=== PATIENT | male | born 1980 | race Caucasian/White ===

== ENCOUNTER 2016-11-11 00:52 | Emergency (ER) | payer SELFPAY ==
--- NOTE | 2016-11-11 01:18 | Emergency Department Record ---
History of Present Illness - General Chief complaint: Abscess Stated complaint: RT FOOT INFECTION Time Seen by Provider: 11/11/16 01:07 Source: Patient Mode of Arrival: Ambulatory Limitations: No limitations - History of Present Illness Initial comments: pt scraped his foot 2 days ago now has surrounding erythema complaint: Rash Onset/Timin -: Days(s) Patient Tetanus UTD (within 5 yrs): No Location: R foot Severity scale (1-10): 4 Quality: Aching Consistency: Constant, Intermittent Improves with: None Worsens with: None Associated symptoms: Denies other symptoms - Related Data Previous Rx's Medication Instructions Recorded Sulfamethoxazole/Trimethoprim 1 each PO BID #20 tablet 11/11/16 [Bactrim Ds Tablet] Allergies Allergy/AdvReac Type Severity Reaction Status Date / Time No Known Drug Allergies Allergy Verified 11/11/16 00:57 Travel Screening - Travel/Exposure Within Last 30 Days Have you traveled within the last 30 days?: No Review of Systems Reviewed: No additional complaints except as noted below Constitutional: Reports: As per HPI. Denies: Chills, Fever, Malaise, Night sweats, Weakness, Weight change Eyes: Reports: As per HPI. Denies: Eye discharge, Eye pain, Photophobia, Vision change ENT: Reports: As per HPI. Denies: Congestion, Dental pain, Ear pain, Epistaxis , Hearing loss, Throat pain Respiratory: Reports: As per HPI. Denies: Cough, Dyspnea, Hemoptysis, Stridor, Wheezes Cardiovascular: Reports: As per HPI. Denies: Arrhythmia, Chest pain, Dyspnea on exertion, Edema, Murmurs, Orthopnea, Palpitations, Paroxysmal nocturnal dyspnea, Rheumatic Fever, Syncope Endocrine: Reports: As per HPI. Denies: Fatigue, Heat or cold intolerance, Polydipsia, Polyuria Gastrointestinal: Reports: As per HPI. Denies: Abdominal pain, Constipation, Diarrhea, Hematemesis, Hematochezia, Melena, Nausea, Vomiting Genitourinary: Reports: As per HPI. Denies: Dysuria, Frequency, Hematuria, Incontinence, Retention, Testicular pain, Testicular mass, Urgency Musculoskeletal: Reports: As per HPI. Denies: Arthralgia, Back pain, Gout, Joint swelling, Myalgia, Neck pain Skin: Reports: As per HPI. Denies: Bruising, Change in color, Change in hair/ nails, Lesions, Pruritus, Rash Neurological: Reports: As per HPI. Denies: Abnormal gait, Confusion, Headache, Numbness, Paresthesias, Seizure, Tingling, Tremors, Vertigo, Weakness Psychiatric: Reports: As per HPI. Denies: Anxiety, Auditory hallucinations, Depression, Homicidal thoughts, Suicidal thoughts, Visual hallucinations Hematological/Lymphatic: Reports: As per HPI. Denies: Anemia, Blood Clots, Easy bleeding, Easy bruising, Swollen glands Past Medical History - SOCIAL HISTORY Smoking Status: Current every day smoker Alcohol Use: None Drug Use: None - RESPIRATORY Hx Respiratory Disorders: No - CARDIOVASCULAR Hx Cardio Disorders: No - NEURO Hx Neuro Disorders: No - GI Hx GI Disorders: No - Hx Genitourinary Disorders: No - ENDOCRINE Hx Endocrine Disorders: No - MUSCULOSKELETAL Hx Musculoskeletal Disorders: No - PSYCH Hx Psych Problems: No - HEMATOLOGY/ONCOLOGY Hx Hematology/Oncology Disorders: No Family Medical History Any Significant Family History?: Yes Hx Diabetes: Mother Hx Heart Disease: Mother Physical Exam - General General Appearance: Alert, Oriented x3, Cooperative, Mild distress - Head Head exam: Normal inspection - Eye Eye exam: Normal appearance, PERRL, EOMI Pupils: Normal accommodation - ENT ENT exam: Normal exam, Mucous membranes moist, Normal external ear exam, Normal orophraynx Ear exam: Normal external inspection. negative: External canal tenderness Nasal Exam: Normal inspection. negative: Discharge, Sinus tenderness Mouth exam: Normal external inspection, Tongue normal Teeth exam: Normal inspection. negative: Dental caries Throat exam: Normal inspection. negative: Tonsillar erythema, Tonsillar exudate - Neck Neck exam: Normal inspection, Full ROM. negative: Tenderness - Respiratory Respiratory exam: Normal lung sounds bilaterally. negative: Respiratory distress - Cardiovascular Cardiovascular Exam: Regular rate, Normal rhythm, Normal heart sounds - GI/Abdominal GI/Abdominal exam: Soft, Normal bowel sounds. negative: Tenderness - Rectal Rectal exam: Deferred - exam: Deferred - Extremities Extremities exam: Normal inspection, Full ROM, Normal capillary refill. negative: Tenderness Image of Feet: 1 - erythema w abrasion in center - Back Back exam: Reports: Normal inspection, Full ROM. Denies: Muscle spasm, Rash noted, Tenderness - Neurological Neurological exam: Alert, CN II-XII intact, Normal gait, Oriented X3 - Psychiatric Psychiatric exam: Normal affect, Normal mood - Skin Skin exam: Dry, Erythema, Intact, Normal color, Rash, Warm Type of lesion: Rash Description of rash: Erythematous Course Vital Signs 11/11/16 00:57 Temperature 99.2 F Pulse Rate 91 H Respiratory 18 Rate Blood Pressure 130/80 Pulse Ox 96 Disposition Disposition: Discharge Clinical Impression: Cellulitis of right foot Disposition: Home, Self-Care Condition: (1) Good Instructions: Cellulitis (ED) Additional Instructions: recheck in 12 hours. return sooner if worse.. elevate foot Prescriptions: Sulfamethoxazole/Trimethoprim [Bactrim Ds Tablet] 1 each PO BID #20 tablet Forms: Patient Portal Access, Return to Work/School Quality - Quality Measures Quality Measures: N/A - Blood Pressure Screening Blood Pressure Classification: Pre-Hypertensive BP Reading Systolic Measurement: 130 Diastolic Measurement: 80 Screening for High Blood Pressure: < Pre-Hypertensive BP, F/U Documented > [ G8950] Pre-Hypertensive Follow-up Interventions: Follow-up with rescreen every year.
[2016-11-11] MEDS: TMP/SMZ 160MG/800MG TAB PO ONE (01:33)
== END 2016-11-11 01:50 | disposition home or self-care (01) ==
LOC: ER 00:52
DX: L03.115 Cellulitis of right lower limb (principal)
CPT/HCPCS: J3490; 99282

== ENCOUNTER 2018-02-16 02:00 | Emergency (ER) | payer SELFPAY ==
[2018-02-16] MEDS ORDERED: 0.9 % SODIUM CHLORIDE 1,000 ML BAG IV ONE (02:11)
[2018-02-16] MEDS ORDERED: ONDANSETRON HCL IV 4 MG/2 ML VIAL IV ONE (02:11)
[2018-02-16 02:13] LABS: URINE APPEARANCE CLEAR; URINE BILIRUBIN NEGATIVE (NEGATIVE); URINE BLOOD NEGATIVE (NEGATIVE); URINE COLOR YELLOW; URINE GLUCOSE (UA) NEGATIVE (NEGATIVE); URINE KETONE TRACE (NEGATIVE); URINE LEUKOCYTE ESTERASE NEGATIVE (NEGATIVE); URINE NITRITE NEGATIVE (NEGATIVE); URINE PROTEIN NEGATIVE (NEGATIVE); URINE UROBILINOGEN 0.2 E.U./dL (0.20 - 1.00)
--- NOTE | 2018-02-16 02:17 | Emergency Department Record ---
History of Present Illness - General Chief Complaint: Abdominal Pain Stated Complaint: FLANK PAIN Time Seen by Provider: 02/16/18 02:01 Source: Patient, Family Mode of Arrival: Ambulatory Limitations: No limitations - History of Present Illness Initial Comments: 37 yo male presents with about 5 days of abdominal discomfort, nausea, flank pain, and decreased bowel movements. No fevers or chills. No diarrhea. No blood in the stools. He reports occasional cramps and gassy feeling. No history of abdominal surgery. No current medications. He does smoke. Rare alcohol use. The abdomen vaguely hurts all over without any one place that hurts. His bilateral flanks hurt on and off. His stools have been small and firm compared to normal. No PCP. He generally is healthy. MD Complaint: Abdominal pain, Flank pain -: Days(s) Location: Epigastric Radiation: Bilateral flank Migration to: Bilateral flank Severity: Moderate Quality: Cramping Consistency: Intermittent Improves With: Nothing Worsens With: Eating Associated Symptoms: Anorexia, Constipation - Related Data Previous Rx's Medication Instructions Recorded Ciprofloxacin HCl [Cipro] 500 mg PO Q12HR #14 tablet 02/16/18 Metronidazole [Flagyl] 500 mg PO BID #14 tablet 02/16/18 Allergies Allergy/AdvReac Type Severity Reaction Status Date / Time No Known Drug Allergies Allergy Verified 11/11/16 00:57 Review of Systems Constitutional: Denies: Chills, Fever, Malaise, Weakness Eyes: Denies: Eye discharge, Eye pain, Photophobia, Vision change ENT: Denies: Congestion, Throat pain Respiratory: Denies: Cough, Dyspnea Cardiovascular: Denies: Chest pain, Palpitations, Syncope Endocrine: Denies: Fatigue, Polydipsia, Polyuria Gastrointestinal: Reports: Abdominal pain, Constipation, Nausea. Denies: Diarrhea, Hematemesis, Hematochezia, Melena, Vomiting Genitourinary: Denies: Dysuria, Frequency, Hematuria Musculoskeletal: Denies: Arthralgia, Back pain, Myalgia Skin: Denies: Bruising, Change in color, Rash Neurological: Denies: Headache Psychiatric: Denies: Anxiety Hematological/Lymphatic: Denies: Blood Clots, Easy bleeding, Easy bruising Past Medical History - SOCIAL HISTORY Smoking Status: Current every day smoker Drug Use: None - RESPIRATORY Hx Respiratory Disorders: No - CARDIOVASCULAR Hx Cardio Disorders: No - NEURO Hx Neuro Disorders: No - GI Hx GI Disorders: No - Hx Genitourinary Disorders: No - ENDOCRINE Hx Endocrine Disorders: No - MUSCULOSKELETAL Hx Musculoskeletal Disorders: No - PSYCH Hx Psych Problems: No - HEMATOLOGY/ONCOLOGY Hx Hematology/Oncology Disorders: No Family Medical History Hx Diabetes: Mother Hx Heart Disease: Mother Physical Exam - General General Appearance: Alert, Oriented x3, Cooperative, No acute distress Limitations: No limitations - Head Head exam: Atraumatic, Normocephalic, Normal inspection - Eye Eye exam: Normal appearance. negative: Conjunctival injection, Scleral icterus - ENT ENT exam: Normal exam, Mucous membranes moist, Normal orophraynx Ear exam: Normal external inspection Nasal Exam: Normal inspection Mouth exam: Normal external inspection Teeth exam: Normal inspection Throat exam: Normal inspection - Neck Neck exam: Normal inspection, Full ROM. negative: Tenderness - Respiratory Respiratory exam: Normal lung sounds bilaterally. negative: Respiratory distress, Rhonchi, Stridor, Wheezes - Cardiovascular Cardiovascular Exam: Regular rate, Normal rhythm, Normal heart sounds - GI/Abdominal GI/Abdominal exam: Soft, Normal bowel sounds. negative: Diminished bowel sounds , Distended, Guarding, Rebound, Rigid, Tenderness - exam: Deferred - Extremities Extremities exam: Normal inspection, Full ROM, Normal capillary refill. negative: Tenderness - Back Back exam: Denies: CVA tenderness (R), CVA tenderness (L) - Neurological Neurological exam: Alert, Oriented X3 - Psychiatric Psychiatric exam: Normal affect, Normal mood - Skin Skin exam: Dry, Intact, Normal color, Warm Course Vital Signs 02/16/18 02:05 Temperature 98.6 F Pulse Rate [ 94 H Pulse Ox Probe] Respiratory 24 Rate Blood Pressure 120/88 [Left Arm] Pulse Ox 98 - Reevaluation(s) Reevaluation #1: The vitals were reviewed. No significant acute abnormalities. 02/16/18 02:17 UA is negative for infection or blood. 02/16/18 02:31 No acute changes on the CBC 02/16/18 03:29 No acute changes on the BMP 02/16/18 03:57 No acute changes on the lipase or LFT's Pain improving. Pt tolerated the PO contrast and is ready for CT 02/16/18 05:[address] demonstrated diverticulosis with faint haziness in the sigmoid. Given his symptoms he will be treated for acute diverticulitis. We discussed home care, reasons to return, and referral for follow up Medical Decision Making - Lab Data Result diagrams: 02/16/18 02:17 02/16/18 02:17 Disposition Disposition: Discharge Clinical Impression: Abdominal pain, Diverticulitis Disposition: Home, Self-Care Condition: (1) Good Instructions: Diverticulitis (ED), Constipation (ED) Additional Instructions: Call your doctor for the next available follow up appointment Return to the ER for a recheck if worse, any new concerns or questions Take the prescriptions provided as directed Review this ER visit and the tests performed with your family doctor Prescriptions: Ciprofloxacin HCl [Cipro] 500 mg PO Q12HR #14 tablet Metronidazole [Flagyl] 500 mg PO BID #14 tablet Referrals: BELLA SALINAS [MEDICAL DOCTOR] - Forms: Patient Portal Access Time of Disposition: 05:05 Quality - Quality Measures Quality Measures: N/A - Blood Pressure Screening Does Patient Have Any of the Following: No Blood Pressure Classification: Hypertensive Reading Systolic Measurement: 125 Diastolic Measurement: 90 Screening for High Blood Pressure: < Pre-Hypertensive BP, F/U Documented > [ G8950] Pre-Hypertensive Follow-up Interventions: Referral to alternative/primary care provider.
[2018-02-16 02:23] LABS: HEMATOCRIT 45.8 % (42.0-52.0); HEMOGLOBIN 16.1 gm/dl (14.0-18.0); MEAN CELL VOLUME 87.2 fl (81-97); MEAN CORPUSCULAR HEMOGLOBIN 30.7 pg (27-33); MEAN CORPUSCULAR HGB CONC 35.2 g/dl (32-36); MEAN PLATELET VOLUME 8.7 fl (7.4-10.4); PLATELET COUNT 267 K/uL (130-400); RED BLOOD COUNT 5.25 M/uL (4.40-5.70); RED CELL DISTRIBUTION WIDTH 12.7 % (11.5-14.5); WHITE BLOOD COUNT W/O DIFF 7.4 K/uL (4.2-12.2)
[2018-02-16 03:02] LABS: PLATELET ESTIMATE NORMAL (NORMAL)
[2018-02-16 03:25] LABS: BLOOD UREA NITROGEN 8 mg/dL (6-20)
[2018-02-16 03:26] LABS: CREATININE 0.7 mg/dL (0.7-1.2); EST GLOMERULAR FILTRATION RATE > 60 mL/min; TOTAL PROTEIN 6.8 g/dL (6.6-8.7)
[2018-02-16 03:28] LABS: GLUCOSE,RANDOM 90 mg/dL (74-109)
[2018-02-16 03:30] LABS: ALT/SGPT 15 U/L (<41)
[2018-02-16 03:31] LABS: ALBUMIN 4.4 g/dL (4.0-5.0); ALKALINE PHOSPHATASE 58 U/L (40-129); AST/SGOT 15 U/L (10.0-50.0); BILIRUBIN,DIRECT < 0.2 mg/dL (0-0.3); LIPASE 18 U/L (13-60)
[2018-02-16] MEDS ORDERED: METRONIDAZOLE 250 MG TABLET PO ONE (05:05)
[2018-02-16] MEDS ORDERED: CIPROFLOXACIN HCL 500 MG TABLET PO ONE (05:05)
--- NOTE | 2018-02-17 14:41 | CT SCAN REPORT ---
DATE: 02/16/2018 at 4:02 a.m. EXAM: CT OF THE ABDOMEN AND PELVIS WITH CONTRAST. HISTORY: DIFFUSE ABDOMINAL PAIN FOR ONE WEEK. CONSTIPATION. RIGHT FLANK PAIN. TECHNIQUE: Axial CT scan of the abdomen and pelvis performed with oral contrast but without intravenous contrast. Preliminary report provided by [facility]. COMPARISON: CT of the abdomen and pelvis dated 03/13/2011. FINDINGS: No calcified gallstones are seen within the gallbladder. No definite hepatic, splenic, adrenal, pancreatic, or renal mass identified. There is some mild diverticulosis in the sigmoid colon. Some mild haziness in the perisigmoid adipose tissue posteriorly, and very mild changes of acute diverticulitis cannot absolutely be excluded. Oral contrast given is passed throughout the small bowel well into the colon with no small-bowel obstruction evident. The appendix is opacified with oral contrast and appears of normal caliber with no appendicitis evident. Mild dependent atelectasis in both lung bases posteriorly. No free intraperitoneal air or free intraperitoneal fluid evident. Tiny periumbilical anterior abdominal wall hernia containing adipose tissue but no bowel. Prominent facet joint arthropathy in the lower lumbar spine and spurring along the anterior aspect of the lower thoracic spine. Somewhat thick-walled appearance of the low rectum is presumably just due to incomplete distension, although correlation with physical examination is suggested. IMPRESSION: 1. MINOR DIVERTICULOSIS IN THE SIGMOID COLON AND QUESTIONABLE MINOR CHANGES OF DIVERTICULITIS WELL POSTERIORLY. 2. SOMEWHAT THICK-WALLED APPEARANCE OF THE LOW RECTUM PRESUMABLY JUST DUE TO INCOMPLETE DISTENSION, ALTHOUGH CORRELATION WITH PHYSICAL EXAMINATION IS SUGGESTED. 3. APPENDIX IS NEGATIVE. NO FREE AIR OR FREE FLUID EVIDENT. 4. SOME DEGENERATIVE CHANGES IN THE SPINE. JOB NUMBER: [id number] [facility]
== END 2018-02-16 05:37 | disposition home or self-care (01) ==
LOC: ER 02:00
DX: K57.92 Diverticulitis of intestine, part unspecified, without perforation or abscess without bleeding (principal); R10.13 Epigastric pain; R11.0 Nausea; F17.210 Nicotine dependence, cigarettes, uncomplicated
CPT/HCPCS: 99284 ×2; 96374; 83690; 80076; 80048; 81003; 85027; 74177; Q9967; J2405; J7030

== ENCOUNTER 2018-04-10 00:49 | Emergency (ER) | payer SELFPAY ==
[2018-04-10] MEDS ORDERED: IBUPROFEN 600 MG TABLET PO ONE (01:04)
--- NOTE | 2018-04-10 01:07 | Emergency Department Record ---
History of Present Illness - General Chief Complaint: Abdominal Pain Stated Complaint: ABD PAIN Time Seen by Provider: 04/10/18 00:58 Source: Patient Mode of Arrival: Ambulatory Limitations: No limitations - History of Present Illness Initial Comments: The patient is here due to a 4 day hx of sharp crampy bilateral flank pain R>L with nausea and intermittent loose stools and anorexia. He has had no vomiting, fever, dysuria or bloating. The patient had a similar issue about 8 weeks ago and was told he may have had diverticulitis. The patient has never had any abdominal surgeries. MD Complaint: Abdominal pain Onset/Timin -: Days(s) Location: Diffuse Migration to: Bilateral flank Severity: Mild Severity scale (1-10): 3 Quality: Sharp, Stabbing Consistency: Constant Improves With: Nothing Worsens With: Nothing Associated Symptoms: Constipation, Diarrhea - Related Data Previous Rx's Medication Instructions Recorded Naproxen [Naprosyn] 500 mg PO BID #14 tablet. 04/10/18 Sucralfate [Carafate] 1 gm PO QID #28 tablet 04/10/18 Allergies Allergy/AdvReac Type Severity Reaction Status Date / Time No Known Drug Allergies Allergy Verified 11/11/16 00:57 Travel Screening - Travel/Exposure Within Last 30 Days Have you traveled within the last 30 days?: No - Travel Symptoms Symptom Screening: None Review of Systems Constitutional: Denies: Chills, Fever Eyes: Denies: Eye discharge ENT: Denies: Congestion Respiratory: Denies: Cough, Dyspnea Past Medical History - SOCIAL HISTORY Smoking Status: Current every day smoker Alcohol Use: None Drug Use: None - RESPIRATORY Hx Respiratory Disorders: No - CARDIOVASCULAR Hx Cardio Disorders: No - NEURO Hx Neuro Disorders: No - GI Hx GI Disorders: Yes Hx Diverticulitis: Yes - Hx Genitourinary Disorders: No - ENDOCRINE Hx Endocrine Disorders: No - MUSCULOSKELETAL Hx Musculoskeletal Disorders: No - PSYCH Hx Psych Problems: No - HEMATOLOGY/ONCOLOGY Hx Hematology/Oncology Disorders: No Family Medical History Any Significant Family History?: Yes Hx Diabetes: Mother Hx Heart Disease: Mother Physical Exam - General General Appearance: Alert, Oriented x3, Cooperative, No acute distress - Head Head exam: Atraumatic, Normocephalic, Normal inspection - Eye Eye exam: Normal appearance, PERRL, EOMI - ENT Throat exam: Normal inspection. negative: Tonsillar erythema, Tonsillar exudate - Neck Neck exam: Normal inspection, Full ROM. negative: Tenderness - Respiratory Respiratory exam: Normal lung sounds bilaterally. negative: Respiratory distress - Cardiovascular Cardiovascular Exam: Regular rate, Normal rhythm, Normal heart sounds - GI/Abdominal GI/Abdominal exam: Soft, Normal bowel sounds. negative: Rebound, Rigid, Tenderness (The abdomen is nontender in all 4 quads.) - Extremities Extremities exam: Normal inspection, Full ROM, Normal capillary refill. negative: Tenderness - Neurological Neurological exam: Alert, Normal gait. negative: Abnormal gait, Motor sensory deficit Course Vital Signs 04/10/18 00:52 Temperature 98.1 F Pulse Rate 121 H Respiratory 20 Rate Blood Pressure 138/80 Pulse Ox 97 - Reevaluation(s) Reevaluation #1: The patient is resting comfortably with no complaints. I did explain to him that his workup is all WNL's and I see no evidence of Diverticulitis. Due to that fact we will place the patient on an NSAID for pain and Carafate and he is to F/U with a PCP next week for recheck. 04/10/18 02:06 Medical Decision Making - Data Complexity MDM Data: Labs Ordered and/or Reviewed (Labs all normal.), X-Ray Ordered and/or Reviewed - Lab Data Result diagrams: 04/10/18 00:13 04/10/18 00:13 - Radiology Data Radiology results: Report reviewed (Abd CT: Neg for any acute changes.) Disposition Disposition: Discharge Clinical Impression: Abdominal pain Qualifiers: Abdominal location: unspecified location Qualified Code(s): R10.9 - Unspecified abdominal pain Disposition: Home, Self-Care Condition: (2) Stable Instructions: Abdominal Pain (ED) Additional Instructions: PLease eat a very bland diet with no fatty or fried foods. Please see your family doctor next week for recheck and return to the ER for any worsening symptoms. Prescriptions: Naproxen [Naprosyn] 500 mg PO BID #14 tablet. Sucralfate [Carafate] 1 gm PO QID #28 tablet Forms: Patient Portal Access Time of Disposition: 02:08 Quality - Quality Measures Quality Measures: N/A - Blood Pressure Screening View Details: Yes Does Patient Have Any of the Following: No Blood Pressure Classification: Pre-Hypertensive BP Reading Systolic Measurement: 138 Diastolic Measurement: 80 Screening for High Blood Pressure: < Pre-Hypertensive BP, F/U Documented > [ G8950] Pre-Hypertensive Follow-up Interventions: Referral to alternative/primary care provider.
[2018-04-10 01:22] LABS: URINE APPEARANCE CLEAR; URINE BILIRUBIN SMALL (NEGATIVE); URINE BLOOD NEGATIVE (NEGATIVE); URINE COLOR YELLOW; URINE GLUCOSE (UA) NEGATIVE (NEGATIVE); URINE KETONE TRACE (NEGATIVE); URINE LEUKOCYTE ESTERASE NEGATIVE (NEGATIVE); URINE NITRITE NEGATIVE (NEGATIVE); URINE PROTEIN NEGATIVE (NEGATIVE); URINE UROBILINOGEN 0.2 E.U./dL (0.20 - 1.00)
[2018-04-10 01:23] LABS: BASO % 0.3 % (0-6); EOS % 2.4 % (0-6); GRAN % 51.2 % (47-80); HEMATOCRIT 48.9 % (42.0-52.0); HEMOGLOBIN 17.3 gm/dl (14.0-18.0); LYMPH % 37.4 % (16-45); MEAN CELL VOLUME 87.2 fl (81-97); MEAN CORPUSCULAR HEMOGLOBIN 30.8 pg (27-33); MEAN CORPUSCULAR HGB CONC 35.4 g/dl (32-36); MEAN PLATELET VOLUME 9.1 fl (7.4-10.4); MONO % 8.7 % (0-9); PLATELET COUNT 261 K/uL (130-400); RED BLOOD COUNT 5.61 M/uL (4.40-5.70); RED CELL DISTRIBUTION WIDTH 12.7 % (11.5-14.5); WHITE BLOOD COUNT W/O DIFF 6.3 K/uL (4.2-12.2)
[2018-04-10 01:30] LABS: BLOOD UREA NITROGEN 8 mg/dL (6-20); CREATININE 0.7 mg/dL (0.7-1.2); EST GLOMERULAR FILTRATION RATE > 60 mL/min
[2018-04-10 01:31] LABS: TOTAL PROTEIN 7.3 g/dL (6.6-8.7)
[2018-04-10 01:33] LABS: GLUCOSE,RANDOM 88 mg/dL (74-109)
[2018-04-10 01:36] LABS: ALB/GLOB RATIO 1.5 (1.1-1.8); ALBUMIN 4.4 g/dL (4.0-5.0); ALKALINE PHOSPHATASE 59 U/L (40-129); ALT/SGPT 13 U/L (<41); AST/SGOT 12 U/L (10.0-50.0); LIPASE 14 U/L (13-60)
--- NOTE | 2018-04-12 11:08 | CT SCAN REPORT ---
EXAM: CT SCAN ABDOMEN/PELVIS WO CONTRAST HISTORY: RIGHT FLANK PAIN. TECHNIQUE: Sequential axial images were obtained from the diaphragms through the ischiorectal fossa without intravenous or oral contrast administration. FINDINGS: Visualized lung bases appear normal. The liver, gallbladder, pancreas , and spleen appear normal. The adrenal glands and kidneys appear normal. There are no CT findings suggestive of obstructive uropathy. The small bowel appears normal. The appendix is visualized and appears normal. The colon appears normal. The urinary bladder appears normal. There is mild degenerative change of the lumbar spine. There is a small fat-containing umbilical hernia. IMPRESSION: NO ACUTE ABDOMINAL OR PELVIC DISEASE PROCESS IS APPRECIATED. THE APPENDIX IS VISUALIZED AND APPEARS NORMAL. JOB NUMBER: [id number] [facility]
== END 2018-04-10 02:13 | disposition home or self-care (01) ==
LOC: ER 00:49
DX: R10.31 Right lower quadrant pain (principal); R19.7 Diarrhea, unspecified; F17.210 Nicotine dependence, cigarettes, uncomplicated
CPT/HCPCS: 74176; 80053; 81003; 83690; 85025; 99283; 99284